=== PATIENT | male | born 1930 | race Caucasian/White ===

== ENCOUNTER 2016-06-08 22:31 | Emergency (ER) | payer BC ==
[2016-06-08] MEDS ORDERED: NEB-XOPENEX 0.63 MG/3 ML INH ONE (22:56)
[2016-06-08] MEDS ORDERED: Furosemide 40 MG/4 ML VIAL ONE (23:52)
[2016-06-08] MEDS ORDERED: CEFTRIAXONE 1 GM VIAL ONE (23:52)
[2016-06-08] MEDS ORDERED: SODIUM CHLORIDE 0.9% 100 ML IV ONE (23:52)
== END 2016-06-09 00:33 | disposition home or self-care (01) ==
LOC: ER 22:31
DX: I50.22 Chronic systolic (congestive) heart failure (principal); I50.1 Left ventricular failure, unspecified; J98.01 Acute bronchospasm; J18.9 Pneumonia, unspecified organism; Z79.01 Long term (current) use of anticoagulants; Z79.899 Other long term (current) drug therapy; Z79.82 Long term (current) use of aspirin
CPT/HCPCS: 36415; 71010; 80053; 82553; 83880; 84484; 85025; 93005; 94640; 96365; 96375